=== PATIENT | male | born 1955 | race Caucasian/White ===

== ENCOUNTER 2021-12-24 12:12 | Emergency (ER) | payer MEDICARE, SELFPAY ==
[2021-12-24 12:13] VITALS: BP 154/89; PULSE 91; RESP 18; TEMP 36.2; O2SAT 99; BMI 36.6
--- NOTE | 2021-12-24 13:12 | EX.ED.VIS.UR ---
HPI HPI - URI History of Present Illness Chief Complaint: Cough Narrative Narrative: 56-year-old male diagnosed himself with COVID with a home test today. Patient states he started to feel little bit rundown on Monday. He has a little bit of a cough. He states he feels hot at times and has not had a fever. He has not had chills or body aches. He is eating and drinking well and states he is eating plenty chicken soup. He is hydrating. He is making urine and stool. No diarrhea. He states he came in today to confirm that he has COVID because his has a cold at home. ROS ROS ED Constitutional Constitutional ED: Reports sweats; Denies chills or fever(s) Eyes Eyes: Denies blurry vision or diplopia ENT ENT ED: Reports rhinorrhea; Denies sore throat Cardiovascular Cardiovascular: Denies chest pain or palpitations Respiratory/Chest Respiratory/Chest: Reports cough; Denies dyspnea or dyspnea on exertion Gastrointestinal Gastrointestinal: Denies abdominal pain, diarrhea, nausea or vomiting Genitourinary Genitourinary ED: Denies dysuria or hematuria Musculoskeletal Musculoskeletal: Denies arthralgias, back pain, myalgias or neck pain Integumentary Denies rash Neurologic Neurologic: Denies headache(s) or paresthesias Psychiatric Psychiatric: Denies anxiety or depression PFSH PFSH Allergy/AdvReac Type Severity Reaction Status Date / Time No Known Allergies Allergy Verified 12/24/21 12:15 Social History Smoking Status: Never smoker EXAM Physical Exam Const Vital Signs: 12/24/21 12:13 12/24/21 12:32 Temperature 97.2 F L Temperature Source Temporal Pulse Rate 91 Respiratory Rate 18 Respiratory Effort Normal Non-Labored Respiratory Depth Normal Respiratory Pattern Normal Blood Pressure 154/89 H Blood Pressure Mean 110 Pulse Ox 99 Oxygen Delivery Method Room Air Room Air Positive well nourished General Appearance ED: NAD; Negative for pallor HEENT Reports moist mucous membranes normocephalic and atraumatic Eyes PERRL and EOMs intact bilaterally Resp normal respiratory effort and clear to auscultation bilaterally Auscultation: Negative for rales, rhonchi or wheezes Cardio Rate: regular rate Rhythm: regular rhythm Neuro oriented x3, CN's II-XII intact bilaterally and no sensory deficits noted Sensorium / Orientation: alert Motor Exam: strength 5/5 throughout Psych mental status grossly normal Skin General Skin Exam: Negative for jaundice or pallor Lesions: no lesions Rashes: no rashes MDM MDM MDM Narrative Medical decision making narrative: Patient presenting with symptoms of URI. He is day 4 of COVID symptoms. He diagnosed himself at home today. I counseled him that the rapid test is the same test that we have here in the hospital. He likely has COVID but he has normal vital signs. His lungs are clear to auscultation. He has mild symptoms. I counseled him that he would likely need to quarantine for couple more days until symptom-free. He was counseled that if his has a cold at home and he is diagnosed with COVID she likely has COVID as well. He acknowledged understanding of this. I given return precautions and I feel he is stable for discharge home. He does not want anything for nausea. He will alternate Tylenol and ibuprofen. Impression: 1. COVID-19 Discharge Plan Triage Chief Complaint: Cough ED Provider: Aaron Jacobson Dx/Rx/DC Orders Clinical Impression: COVID-19 Instructions: Coronavirus Disease 2019 (COVID-19): Caring for Yourself or Others Primary Care Provider: Alcon Solis Referrals: Alcon Solis MD [Primary Care Provider] - Disposition Disposition: Home, Self Care
== END 2021-12-24 13:32 | disposition home or self-care (01) ==
LOC: ED 13:26
PROVIDERS: Emergency Provider Student in an Organized Health Care Education/Training Program; PCP Nurse Practitioner Family; Visit Provider Student in an Organized Health Care Education/Training Program
DX: U07.1 COVID-19 (principal)
CPT/HCPCS: 99282